=== PATIENT | male | born 1980 | race Caucasian/White ===

== ENCOUNTER → 2022-01-29 08:53 | Outpatient (BNVA) | payer SELFPAY | PROVIDERS: PCP Nurse Practitioner; Visit Provider Nurse Practitioner | DX: E29.1 Testicular hypofunction (principal) | CPT/HCPCS: 80053; 80061; 84403; 84443; 85025 ==

== ENCOUNTER 2022-09-28 22:47 | Emergency (ER) | payer SELFPAY ==
[2022-09-28 23:00] VITALS: BP 139/78; PULSE 71; RESP 18; TEMP 36.9; O2SAT 96; BMI 30.8
--- NOTE | 2022-09-28 23:16 | ED_ITS ---
HPI - Eye Problem General: Chief complaint: Eye Problems Stated complaint: fb in Left eye Time Seen by Provider: 09/28/22 22:59 History of Present Illness: 42-year-old male patient comes in today for complaints of foreign body to the left eye. Patient reports incident occurred about 1-1/2 hours ago. Patient showered and thought he had got all of the dirt and metal off of himself when a flexed muscle went into his eye. Patient reports irrigating but continued to have discomfort in the upper eye. Patient reports immunizations are up-to-date. Associated symptoms: Denies fever(s) Review of Systems Const: Denies: fever(s) Eyes: Reports: eye discomfort and eye redness PFSH ED PFSH: Medical History Testosterone deficiency in male Surgical History History of hernia repair right two times History of knee surgery left meniscus tear repair Family History Grandmother Cancer Grandfather Dementia Denies family history of Diabetes Anesthesia complication Bleeding disorder Hypertension Stroke Social History Smoking and tobacco status: never smoked Second hand smoke exposure: No Smoking risk assessment/counseling performed?: No Alcohol intake: former Desire information about alcohol rehabilitation?: No Counseling given: No Desire information about substance/drug rehabilitation?: No Counseling given: No Adopted: No Caregiver/support person: No Lives independently: Yes Household members: spouse and children Housing: House Marital status: Number of children: 6 Number of grandchildren: 1 service: No Current occupational status: employed Current occupation: Self Current occupational exposures/hazards: No Pets and animals: Yes Pets & animals: farm animals History of recent travel: No Current gender identity: Male Physical Exam Const: COMMON NORMALS: alert HENMT: COMMON NORMALS: normocephalic HEAD & SCALP: normocephalic Eye: VISUAL ACUITY: Yes acuity normal ALIGNMENT: Yes alignment normal EYELID: eyelid abnormality left upper eyelid swelling (Mild) CONJUNCTIVA: Yes conjunctival abnormal positive left conjunctival injection CORNEA: Yes fluorescein used (No foreign body noted, superficial abrasion lateral left eye) Neck/C-Spine: COMMON NORMALS: full ROM Resp: COMMON NORMALS: normal respiratory effort and clear to auscultation bilaterally AUSCULTATION: clear to auscultation bilaterally Cardio: COMMON NORMALS: regular rate RATE: regular rate GI: INSPECTION: Yes normal to inspection Extremity: COMMON NORMALS: normal to inspection Neuro: SENSORIUM/ORIENTATION: Yes alert Skin: COMMON NORMALS: turgor normal GENERAL SKIN EXAM: turgor normal Course Vital Signs: Vital signs: Vital Signs Temperature 98.5 F 09/28/22 23:00 Pulse Rate 71 09/28/22 23:00 Respiratory Rate 18 09/28/22 23:00 Blood Pressure 139/78 09/28/22 23:00 Pulse Oximetry 96 09/28/22 23:00 Oxygen Delivery Me thod 09/28/22 23:00 MDM - Eye Problem Medical Decision Making 42-year-old male patient comes in for possible foreign body to the left eye. Patient thought he might got a piece of metal in it. On exam there is no visible foreign body noted. Under fluorescein stain there is noted some abrasion to the lateral part of the eye. Inversion of the eyelid noted no foreign body. Mild conjunctival injection is noted. Differential diagnosis includes but not limited to foreign body eye, corneal abrasion, conjunctivitis. Patient was placed on Maxitrol eyedrops recommended to have the eye reevaluated in 2 to 3 days. Patient reported understanding of care plan need for follow-up or return to the ER. Discharge Plan Discharge Patient Disposition: Home Clinical Impression: Corneal abrasion Qualifiers: Encounter type: initial encounter Laterality: left Qualified Code(s): S05.02XA - Injury of conjunctiva and corneal abrasion without foreign body, left eye, initial encounter Condition: Stable Prescriptions: No Action testosterone cypionate 200 mg/mL oil 200 mg SUBCUT Q7D Qty: 10 5RF (DME) syringe with needle 3 mL 23 x 1 syringe See Rx Instructions .Route Qty: 5 5RF Rx Instructions: use 1 weekly Discharge Orders: Discharge ED (Routine); Ordered 09/28/22 Ordered By: Jim Jaimes Referrals: Chen Houser, [facility] [Primary Care Provider] - Discharge Diet: Usual diet Discharge Activity: Increase activity as tolerated Patient Instructions: Corneal Abrasion (ED) Activity Restrictions/Additional Instructions: Use tetracaine, pain eyedrops, 1 drop to the affected eye every 3 hours as needed for discomfort or pain. Do not use pain eyedrops for more than 48 hours. Use cool compresses to the eye for further pain relief. Use acetaminophen or ibuprofen for further pain relief. Use antibiotic eyedrops 1 drop to the affected eye 4 times a day while awake for the next 7 days. Follow-up with primary care or eye customer care specialist in 3 days for recheck. Return to ED for new concerns. Coding Level of Care Code ED [facility] for Buffy Carrasquillo
[2022-09-28] MEDS: tetracaine 0.5% Op Soln 4 mL Btl 1 DROP EYE-BOTH (23:17)
[2022-09-28] MEDS: fluorescein 1 mg Strip XX (23:17)
[2022-09-28] MEDS: neomycin-poly-dex Op oint 3.5 gm 1 APPLIC EYE-BOTH (23:23)
== END 2022-09-28 23:27 | disposition home or self-care (01) ==
PROVIDERS: Emergency Provider Nurse Practitioner Family; PCP Nurse Practitioner
DX: S05.02XA Injury of conjunctiva and corneal abrasion without foreign body, left eye, initial encounter (principal); X58.XXXA Exposure to other specified factors, initial encounter
CPT/HCPCS: 99283

== ENCOUNTER → 2022-10-29 08:27 | Outpatient (BNVA) | payer SELFPAY | PROVIDERS: PCP Nurse Practitioner; Visit Provider Nurse Practitioner | DX: E29.1 Testicular hypofunction (principal); Z13.6 Encounter for screening for cardiovascular disorders | CPT/HCPCS: 80053; 80061; 84403 ==

== ENCOUNTER → 2023-03-01 08:08 | Outpatient (BNVA) | payer SELFPAY | PROVIDERS: PCP Nurse Practitioner; Visit Provider Nurse Practitioner | DX: E29.1 Testicular hypofunction (principal) | CPT/HCPCS: 82040; 84270; 84403 ==

== ENCOUNTER → 2023-09-17 15:14 | Outpatient (BNVA) | payer SELFPAY | PROVIDERS: PCP Nurse Practitioner; Visit Provider Nurse Practitioner | DX: E29.1 Testicular hypofunction (principal); Z13.6 Encounter for screening for cardiovascular disorders; Z12.5 Encounter for screening for malignant neoplasm of prostate | CPT/HCPCS: 80053; 80061; 82040; 84270; 84403; 85025; G0103 ==

== ENCOUNTER → 2024-04-01 13:12 | Outpatient (BNVA) | payer SELFPAY | PROVIDERS: PCP Nurse Practitioner; Visit Provider Nurse Practitioner | DX: E29.1 Testicular hypofunction (principal); Z13.6 Encounter for screening for cardiovascular disorders | CPT/HCPCS: 80053; 80061; 85025 ==

== ENCOUNTER → 2025-02-18 08:53 | Outpatient (BNVA) | payer OTHER, SELFPAY | PROVIDERS: PCP Nurse Practitioner; Visit Provider Nurse Practitioner | DX: E29.1 Testicular hypofunction (principal); Z13.6 Encounter for screening for cardiovascular disorders; Z12.5 Encounter for screening for malignant neoplasm of prostate | CPT/HCPCS: 80053; 80061; 84402; 84403; 85025; G0103 ==

== ENCOUNTER → 2025-05-05 12:12 | Outpatient (BNVA) | payer OTHER, SELFPAY | PROVIDERS: PCP Nurse Practitioner; Visit Provider Nurse Practitioner | DX: S46.219A Strain of muscle, fascia and tendon of other parts of biceps, unspecified arm, initial encounter (principal); X58.XXXA Exposure to other specified factors, initial encounter | CPT/HCPCS: 73030 ==

== ENCOUNTER 2025-05-24 15:35 | Outpatient (CLI) | payer OTHER, SELFPAY ==
--- NOTE | 2025-05-24 16:00 | MR_ITS ---
WS: [id number] MRI RIGHT SHOULDER HISTORY: History of prior shoulder injury with torn ligaments. COMPARISON: Radiographs 05/05/2025 TECHNIQUE: Multiplanar sequences of the shoulder joint are submitted. Moderate AC joint arthritis. Hypertrophic bone formation distal clavicle. Minimal narrowing of the AC joint. There is mild synovitis at the AC joint. Small amount of fluid in the subacromial and subdeltoid bursa. No os acromion. Biceps tendon is not present in the bicipital groove. Mild atrophy of the supraspinatus muscle with no edema. The remaining rotator cuff muscles are preserved. Complete tear of the distal supraspinatus tendon measuring 9 mm in width. Tendon is retracted slightly. Infraspinatus tendon is intact. Very small caliber distal subscapularis tendon with increased signal. Tendon is atrophied. There is an interstitial tear in the distal tendon. Mild narrowing of the glenohumeral joint. Intrasubstance degeneration within the labrum. No definite labral tears are identified. MR/MR shoulder RT wo con* [id number] IMPRESSION: 1. Moderate AC joint arthritis with mild narrowing of the AC joint and synovit is. 2. Complete tear involving the distal supraspinatus tendon measuring 9 mm in w idth. 3. Atrophy distal subscapularis tendon with heterogeneous signal. Increased fl uid signal in the tendon itself consistent with an interstitial tear. Tendon is also being deformed suggesting there is scarring and fibrosis. 4. Mild atrophy of the supraspinatus muscle. 5. Biceps tendon absent in the bicipital groove. Dislocated versus torn biceps tendon.
== END 2025-05-24 15:36 | disposition home or self-care (01) ==
PROVIDERS: PCP Nurse Practitioner; Visit Provider Nurse Practitioner
DX: S46.811A Strain of other muscles, fascia and tendons at shoulder and upper arm level, right arm, initial encounter (principal); S46.211A Strain of muscle, fascia and tendon of other parts of biceps, right arm, initial encounter; M19.011 Primary osteoarthritis, right shoulder; M62.511 Muscle wasting and atrophy, not elsewhere classified, right shoulder; X58.XXXA Exposure to other specified factors, initial encounter
CPT/HCPCS: 73221

== ENCOUNTER → 2025-08-30 09:23 | Outpatient (BNVA) | payer OTHER, SELFPAY | PROVIDERS: PCP Nurse Practitioner; Visit Provider Nurse Practitioner | DX: E29.1 Testicular hypofunction (principal) | CPT/HCPCS: 80053; 80061; 82040; 84270; 84403; 85025 ==